=== PATIENT | male | born 1995 | race African-American/Black ===

== ENCOUNTER 2024-04-29 08:47 | Emergency (ER) | payer OTHER ==
[~2024-04-29] VITALS: Ht 180.3 cm; Wt 69.0 kg
[2024-04-29 09:26] VITALS: BP 143/106; PULSE 69; RESP 18; TEMP 97.6; O2SAT 99
[2024-04-29] MEDS ORDERED: NAPR-746 PO (10:00)
== END 2024-04-29 10:30 | disposition home or self-care (01) ==
LOC: ER 08:47
DX: S63.501A Unspecified sprain of right wrist, initial encounter (principal); X50.0XXA Overexertion from strenuous movement or load, initial encounter; Y93.89 Activity, other specified; Y92.89 Other specified places as the place of occurrence of the external cause; Y99.8 Other external cause status
CPT/HCPCS: 73110